=== PATIENT | female | born 1945 | race Caucasian/White ===

== ENCOUNTER 2017-10-17 08:49 | Outpatient (CLI) | payer OTHER | END 2017-10-17 15:36 | disposition home or self-care (01) | LOC: TOM 08:49 | DX: K56.50 Intestinal adhesions [bands], unspecified as to partial versus complete obstruction (principal); Q41.9 Congenital absence, atresia and stenosis of small intestine, part unspecified ==

== ENCOUNTER 2020-12-31 07:59 | Outpatient (CLI) | payer OTHER | END 2020-12-31 08:11 | disposition home or self-care (01) | LOC: NUCLEAR 07:59 | PROVIDERS: ATTEND Internal Medicine Cardiovascular Disease | DX: I25.10 Atherosclerotic heart disease of native coronary artery without angina pectoris (principal); I70.213 Atherosclerosis of native arteries of extremities with intermittent claudication, bilateral legs | CPT/HCPCS: 78452; 93017; A9500 ==

== ENCOUNTER 2021-11-23 07:50 | Outpatient (CLI) | payer OTHER | END 2021-11-23 07:52 | disposition home or self-care (01) | LOC: TOM 07:50 | PROVIDERS: ATTEND Internal Medicine Gastroenterology | DX: R93.3 Abnormal findings on diagnostic imaging of other parts of digestive tract (principal); Z12.11 Encounter for screening for malignant neoplasm of colon ==

== ENCOUNTER 2021-12-30 17:30 | Inpatient (IN) | payer OTHER ==
[2022-01-05] MEDS ORDERED: HORIZANT600 MG (11:37)
[2022-01-05] MEDS ORDERED: MICARDIS HCT 81 EAC1 (11:37)
[2022-01-10] MEDS ORDERED: OMEPRAZOLE20 MG (08:57)
[2022-01-10] MEDS ORDERED: CILOSTAZOL50 MG (08:57)
[2022-01-10] MEDS ORDERED: TELMISARTAN-HC1 EACH (08:57)
[2022-01-10] MEDS ORDERED: OLOPATADINE HC2.5 ML (11:22)
[2022-01-10] MEDS ORDERED: ROSUVASTATIN CA20 MG (11:22)
[2022-01-10] MEDS ORDERED: FAMOTIDINE40 MG (11:22)
[2022-01-10] MEDS ORDERED: ILEVRO3 ML (11:22)
[2022-01-10] MEDS ORDERED: METFORMIN HCL500 M4 (11:22)
[2022-01-10] MEDS ORDERED: GABAPENTIN600 MG (11:22)
[2022-01-10] MEDS ORDERED: 8HR ARTHRITIS650 MG (11:22)
[2022-01-10] MEDS ORDERED: CETIRIZINE HCL10 MG (11:22)
[2022-01-10] MEDS ORDERED: VITAMIN E180 M1 (11:23)
[2022-01-13] MEDS ORDERED: PERCOCET 5-3251 EACH PO (18:19)
[2022-01-13] MEDS ORDERED: LEVSIN/SL0.125 MG SL (18:19)
== END 2022-01-13 20:00 | disposition home or self-care (01) | DRG 330 ==
LOC: SURG 01-10 05:50 → O/R 01-10 05:50 → SURG 01-10 09:30
PROVIDERS: ADMIT Colon & Rectal Surgery; ATTEND Colon & Rectal Surgery
PROC: 07BB4ZZ Excision of Mesenteric Lymphatic, Percutaneous Endoscopic Approach (ICD-10-PCS; 2022-01-10)
PROC: 3E0F7SF Introduction of Other Gas into Respiratory Tract, Via Natural or Artificial Opening (ICD-10-PCS; 2022-01-10)
PROC: 0DTF4ZZ Resection of Right Large Intestine, Percutaneous Endoscopic Approach (ICD-10-PCS; principal; 2022-01-10 10:15)
DX: C18.2 Malignant neoplasm of ascending colon (principal); K92.1 Melena; R59.0 Localized enlarged lymph nodes; I13.10 Hypertensive heart and chronic kidney disease without heart failure, with stage 1 through stage 4 chronic kidney disease, or unspecified chronic kidney disease; E11.22 Type 2 diabetes mellitus with diabetic chronic kidney disease; N18.32 Chronic kidney disease, stage 3b; Z79.84 Long term (current) use of oral hypoglycemic drugs; Z85.038 Personal history of other malignant neoplasm of large intestine

== ENCOUNTER 2022-06-12 14:01 | Emergency (ER) | payer OTHER ==
[~2022-06-12] VITALS: Ht 157.5 cm; Wt 72.6 kg
[~2022-06-12 14:01] MED LIST: 8HR ARTHRITIS650 MG; CETIRIZINE HCL10 MG; CILOSTAZOL50 MG; FAMOTIDINE40 MG; GABAPENTIN600 MG; HORIZANT600 MG; ILEVRO3 ML; LEVSIN/SL0.125 MG SL; METFORMIN HCL500 M4; MICARDIS HCT 81 EAC1; OLOPATADINE HC2.5 ML; OMEPRAZOLE20 MG; PERCOCET 5-3251 EACH PO; ROSUVASTATIN CA20 MG; TELMISARTAN-HC1 EACH; VITAMIN E180 M1
[2022-06-12] MEDS ORDERED: PROTONIX40 MG PO (14:23)
[2022-06-12] MEDS ORDERED: DIOVAN HCT 1601 EACH PO (14:23)
== END 2022-06-12 17:40 | disposition home or self-care (01) ==
LOC: ER 14:01
DX: I10 Essential (primary) hypertension (principal); Z88.2 Allergy status to sulfonamides

== ENCOUNTER → 2024-05-01 | Emergency (ER) | payer OTHER ==
[~2024-05-01] VITALS: Ht 157.5 cm; Wt 72.6 kg
[~2024-05-01] MED LIST changes: +CLONIDINE HCL 0.1 MG TABLET PO ONE; +DIOVAN HCT 1601 EACH PO; +PROTONIX40 MG PO; +cloNIDine HCL 0.2 MG TABLET PO ONE
[2024-05-01 13:43] VITALS: O2SAT 97
[2024-05-01 16:09] VITALS: BP 110/60
== END | disposition home or self-care (01) ==
LOC: ER 12:53
DX: I10 Essential (primary) hypertension (principal); Z88.2 Allergy status to sulfonamides